=== PATIENT | male | born 1960 | race Caucasian/White ===

== ENCOUNTER 2017-10-19 09:01 | Inpatient (IN) ==
[2017-10-19] MEDS ORDERED: 0.9 % Sodium Chloride 1,000 ML IVC ONE ×2 (09:14→10:05)
[2017-10-19] MEDS ORDERED: *HR* Morphine 2 MG/ML SYRINGE IVP ONE (09:14)
[2017-10-19] MEDS ORDERED: *HR* Promethazine 25 MG/ML VIAL IVP ONE (09:15)
--- NOTE | 2017-10-19 09:31 | Emergency Department Note ---
Disposition Clinical Impression: Acute kidney injury, Dehydration, Gastroenteritis Disposition: Admitted As Inpatient Condition: Good [facility] Care Provider[facility] - Forms: ED Satisfaction Letter Time of Disposition: 10:24 Nausea/Vomiting/Diarrhea HPI - General Chief complaint: ED Nausea/Vomiting/Diarrhea Stated complaint: V/D, dizzy Time Seen by Provider: 10/19/17 09:13 Source: patient, family Limitations: no limitations Nursing Notes Reviewed: Yes Vital Signs Reviewed: Yes - History of Present Illness HPI Narrative: 57-year-old male presents emergency room for nausea vomiting diarrhea. Symptoms started 2 days ago. Started out with vomiting and diarrhea and abdominal cramping. States he does not really have abdominal pain but only when he throws up. He stirring up more than 10 times per day. He is a known diabetic. He states he feels dizzy and just worn out. Denies chest pain. Denies shortness of breath. Denies blood in his vomit or stool. Has had cold sweats but is unsure Pees had any true fever or not. He denies headache. Denies numbness. Symptoms are all isolated to the GI system he states. He went to his orthopedic doctor this morning to get his right knee reexamined as he had a recent right knee surgery. They felt everything with the knee was okay. - Related Data Home Medications Medication Instructions Recorded Confirmed Albuterol Sulfate [Proair Hfa] 1 puff IH Q4H PRN 08/22/16 10/05/17 Aspirin [Lo-Dose Aspirin EC] 81 mg PO DAILY 08/22/16 10/05/17 Esomeprazole Magnesium [Nexium] 20 mg PO DAILY 08/22/16 10/05/17 GlipiZIDE [Glipizide ER] 10 mg PO DAILY 08/22/16 10/05/17 Insulin NPH Hum/Reg Insulin Hm 50 unit SQ QAM 08/22/16 10/05/17 [Humulin 70/30 Kwikpen] Loratadine [Allergy Relief] 10 mg PO DAILY 08/22/16 10/05/17 Metformin HCl [Fortamet] 1,000 mg PO BID 08/22/16 10/05/17 hydroCHLOROthiazide 25 mg PO DAILY 08/22/16 10/05/17 [Hydrochlorothiazide] Insulin Glargine,Hum.rec.anlog 20 unit SQ HS 10/05/17 10/05/17 [Lantus Solostar] Previous Rx's Medication Instructions Recorded Aspirin Enteric Coated [Aspirin EC] 325 mg PO BID #20 tablet. 10/05/17 OxyCODONE Immed Rel [Roxicodone 5 5 mg PO Q4HR PRN #24 tablet 10/05/17 MG] Allergies Allergy/AdvReac Type Severity Reaction Status Date / Time Penicillins Allergy Rash Verified 10/19/17 09:02 Constitutional: Reports: chills, weakness Eyes: Reports: as per HPI Cardiovascular: Reports: as per HPI. Denies: chest pain, palpitations Respiratory: Reports: cough. Denies: dyspnea, wheezes, hemoptysis, stridor Gastrointestinal: Reports: nausea, vomiting, diarrhea Genitourinary: Reports: as per HPI Musculoskeletal: Reports: as per HPI Integumentary: Reports: as per HPI Neurological: Reports: as per HPI, weakness. Denies: headache, numbness, paresthesias, confusion, abnormal gait, vertigo Psychiatric: Reports: as per HPI Endocrine: Reports: as per HPI Hematological/Lymphatic: Reports: as per HPI Allergic/Immunologic: Reports: as per HPI Past Medical History - Past Medical History Medical history: Reports: arthritis, diabetes, hyperlipidemia, hypertension Surgical history: Reports: knee replacement, other Psychiatric history: Reports: no psych history - Social History Smoking Status: Never smoker Smokeless Tobacco Status: No Alcohol use: Reports: occasionally Drug use: Reports: none Physical Exam - General Limitations: no limitations General appearance: alert, other (vomiting) - Head Head exam: atraumatic, normocephalic - Eye Eye exam: Present: normal appearance - Chest Chest inspection: Present: normal inspection - Respiratory Respiratory exam: Present: normal lung sounds bilaterally - Cardiovascular Cardiovascular exam: Present: regular rate, normal rhythm - Abdominal Exam Abdominal exam: Present: soft, tenderness (Generalized abdominal tenderness on palpation. No peritoneal sounds. No guarding.), normal bowel sounds - Extremities Exam Extremities exam: Present: normal inspection, other (Right knee bandaged) - Back Exam Back exam: Present: normal inspection - Neurological Exam Neurological exam: Present: alert, oriented X3 - Psychiatric Psychiatric exam: Present: normal affect, normal mood, depressed Course Vital Signs Temperature 98.0 F 10/19/17 09:02 Pulse Rate 104 10/19/17 09:02 Respiratory Rate 20 10/19/17 09:02 Blood Pressure 96/66 10/19/17 09:02 O2 Sat by Pulse Oximetry 100 10/19/17 09:02 Temperature 98.0 F 10/19/17 09:02 Pulse Rate 89 10/19/17 09:41 Respiratory Rate 20 10/19/17 09:41 Blood Pressure 139/84 10/19/17 09:41 O2 Sat by Pulse Oximetry 99 10/19/17 09:41 Oxygen Delivery Oxygen Delivery Room Air Nausea/Vomiting/Diarrhea - [facility] Narrative Medical decision making narrative: Patient has an elevated BUN/creatinine consistent with dehydration. Patient has acute kidney injury from this. Patient has an elevated lactate. Patient is receiving IV fluids. I feel has elevated lactate secondary to dehydration. I have added a CT abdomen and pelvis to evaluate for any intra-abdominal pathology with the elevated lactate. He has no abdominal pain when he is not vomiting. He is receiving 2 L of fluid thus far in the ER as well as antiemetics. His vomiting has stopped. Her sugars only 372. I spoke with the hospitalist. We will except the patient to their service. cxr neg ekg ok vss at this time afebrile no wbc count elevation - Medical Records Medical records reviewed: Yes I reviewed the patient's medical records. - Lab Data Lab results reviewed: Yes I reviewed the patient's lab results. Result diagrams: 10/19/17 09:28 10/19/17 09:28 Lab Results 10/19/17 10/19/17 10/19/17 Range/Units 09:28 09:28 09:28 WBC 11.1 (4.3-11.1) K/mcL RBC 4.98 (4.19-5.50) M/mcL Hgb 14.3 (12.9-16.9) g/dL Hct 43.0 (37.5-50.1) % MCV 86.3 (83.0-100.0) fL MCH 28.7 (28.0-33.3) pg MCHC 33.3 (31.6-35.5) g/dL RDW 13.2 (11.5-14.5) % Plt Count 502 H (140-400) K/mcL MPV 11.2 (9.4-12.4) fL Immature Gran % 1.4 (0-4) % Seg Neutrophils % 82.7 % Lymphocytes % 7.7 % Monocytes % 7.2 % Eosinophils % 0.5 % Basophils % 0.5 % Neutrophils # 9.2 H (1.6-8.9) K/mcL Lymphocytes # 0.9 (0.6-4.6) K/mcL Monocytes # 0.8 (0.0-1.3) K/mcL Eosinophils # 0.1 (0.0-0.6) K/mcL Basophils # 0.1 (0.0-0.2) K/mcL Sodium 130 L (136-145) mEq/L Potassium 3.8 (3.5-5.1) mEq/L Chloride 88 L (98-107) mEq/L Carbon Dioxide 25 (23-29) mEq/L BUN 24 H (6-20) mg/dL Creatinine 1.69 H (0.70-1.30) mg/dL Est GFR ( Amer) 51 L (> 60) Est GFR (Non-Af Amer) 42 L (> 60) BUN/Creatinine Ratio 14 (6-26) Glucose 372 H (70-105) mg/dL Calculated Osmolality 289 (280-300) Lactic Acid 3.5 H (0.5-2.2) mmol/L Calcium 10.2 (8.6-10.3) mg/dL Magnesium 1.6 (1.6-2.6) mg/dL Total Bilirubin 1.3 H (0.3-1.0) mg/dL Direct Bilirubin 0.3 H (0.0-0.2) mg/dL Indirect Bilirubin 1.0 (0.0-1.2) mg/dL AST 57 H (13-39) Units/L ALT 52 (7-52) Units/L Alkaline Phosphatase 89 (34-104) Units/L Troponin I (< 0.04) ng/mL Serum Total Protein 8.3 (6.4-8.9) g/dL Albumin 4.6 (3.5-5.7) g/dL Globulin 3.7 H (2.4-3.5) g/dL Albumin/Globulin Ratio 1.2 (1.1-2.2) Lipase 44 (11-82) Units/L Beta-Hydroxybutyric Acd 1.20 H (0.02-0.27) mmol/L Range/Units 09:28 WBC (4.3-11.1) K/mcL RBC (4.19-5.50) M/mcL Hgb (12.9-16.9) g/dL Hct (37.5-50.1) % MCV (83.0-100.0) fL MCH (28.0-33.3) pg MCHC (31.6-35.5) g/dL RDW (11.5-14.5) % Plt Count (140-400) K/mcL MPV (9.4-12.4) fL Immature Gran % (0-4) % Seg Neutrophils % % Lymphocytes % % Monocytes % % Eosinophils % % Basophils % % Neutrophils # (1.6-8.9) K/mcL Lymphocytes # (0.6-4.6) K/mcL Monocytes # (0.0-1.3) K/mcL Eosinophils # (0.0-0.6) K/mcL Basophils # (0.0-0.2) K/mcL Sodium (136-145) mEq/L Potassium (3.5-5.1) mEq/L Chloride (98-107) mEq/L Carbon Dioxide (23-29) mEq/L BUN (6-20) mg/dL Creatinine (0.70-1.30) mg/dL Est GFR ( Amer) (> 60) Est GFR (Non-Af Amer) (> 60) BUN/Creatinine Ratio (6-26) Glucose (70-105) mg/dL Calculated Osmolality (280-300) Lactic Acid (0.5-2.2) mmol/L Calcium (8.6-10.3) mg/dL Magnesium (1.6-2.6) mg/dL Total Bilirubin (0.3-1.0) mg/dL Direct Bilirubin (0.0-0.2) mg/dL Indirect Bilirubin (0.0-1.2) mg/dL AST (13-39) Units/L ALT (7-52) Units/L Alkaline Phosphatase (34-104) Units/L Troponin I < 0.03 (< 0.04) ng/mL Serum Total Protein (6.4-8.9) g/dL Albumin (3.5-5.7) g/dL Globulin (2.4-3.5) g/dL Albumin/Globulin Ratio (1.1-2.2) Lipase (11-82) Units/L Beta-Hydroxybutyric Acd (0.02-0.27) mmol/L - Radiology Data Radiology results reviewed: Yes I reviewed the patient's radiology results. - EKG Data EKG attestation: Yes I reviewed and interpreted this EKG. EKG results narrative: EKG shows a rate of 103. Sinus tachycardia. Normal axis. UT interval 146. QRS 86. QTc 384. No signs of acute abnormalities.
[2017-10-19 09:40] LABS: Basophils # 0.1 K/mcL (0.0-0.2); Basophils % 0.5 %; Eosinophils # 0.1 K/mcL (0.0-0.6); Eosinophils % 0.5 %; Hemoglobin 14.3 g/dL (12.9-16.9); Immature Granulocytes % 1.4 % (0-4); Lymphocytes # 0.9 K/mcL (0.6-4.6); Lymphocytes % 7.7 %; Mean Corpuscular HGB Conc 33.3 g/dL (31.6-35.5); Mean Corpuscular Hemoglobin 28.7 pg (28.0-33.3); Mean Corpuscular Volume 86.3 fL (83.0-100.0); Mean Platelet Volume 11.2 fL (9.4-12.4); Monocytes # 0.8 K/mcL (0.0-1.3); Monocytes % 7.2 %; Neutrophils # 9.2 K/mcL (1.6-8.9); Platelet Count 502 K/mcL (140-400); Red Blood Count 4.98 M/mcL (4.19-5.50); Red Cell Distribution Width 13.2 % (11.5-14.5); Segmented Neutrophils % 82.7 %
[2017-10-19 09:52] LABS: Beta-Hydroxybutyric Acid 1.2 mmol/L (0.02-0.27)
[2017-10-19 10:01] LABS: Albumin 4.6 g/dL (3.5-5.7); Albumin/Globulin Ratio 1.2 (1.1-2.2); Bilirubin,Direct 0.3 mg/dL (0.0-0.2); Bilirubin,Total 1.3 mg/dL (0.3-1.0); Calcium 10.2 mg/dL (8.6-10.3); Globulin 3.7 g/dL (2.4-3.5); Magnesium 1.6 mg/dL (1.6-2.6); Potassium 3.8 mEq/L (3.5-5.1); Total Protein 8.3 g/dL (6.4-8.9)
[2017-10-19] MEDS ORDERED: Naloxone 0.4 MG/ML INJ IVP PRN (14:20)
[2017-10-19] MEDS ORDERED: Ondansetron 4 MG/2 ML VIAL IVP PRN (14:20)
[2017-10-19] MEDS ORDERED: *HR* Dextrose 50 % in Water (Syg) 50 ML SYRINGE IVP PRN (14:36)
[2017-10-19] MEDS ORDERED: D5% in Water 1,000 ML IVC PRN (14:36)
[2017-10-19] MEDS ORDERED: Dextrose Gel 15 GM PO PRN ×2 (14:36)
--- NOTE | 2017-10-19 14:54 | Internal Med History&Physical ---
<Yolanda Claros - Last Filed: 10/19/17 16:39> Date of Encounter: 10/19/17 Time of Encounter: 14:00 Assessment and Plan (1) Acute kidney injury Status: Acute Patient's creatinine is 1.69 baseline is less than 1 GFR is 42. Suspect this is prerenal due to fluid loss from nausea vomiting. We will give gentle IV hydration and monitor creatinine.-We will hold diuretics for now We will avoid nephrotoxins No NSAIDS Monitor intake and output and daily weights Monitor electrolytes Renal dose all antibiotics (2) Gastroenteritis Status: Acute Patient has been experiencing nausea vomiting and diarrhea for the past 2 days he has had sick contacts his has been ill with upper respiratory symptoms and has been exposed to small children with similar symptoms. Continue with IV fluids Antiemetics Clear liquid diet and advance as tolerated (3) Dehydration Status: Acute 1 patient has been experiencing nausea vomiting diarrhea for the past 2 days we will continue with IV fluids Monitor electrolytes and replace as needed Clear liquid diet and advance as tolerated Anti-emetics Will obtain flu swab (4) Hypertension Status: Chronic Presently stable we will continue with IV fluids and hold hydrochlorothiazide for now due to JOSSELINE Qualifiers: Hypertension type: essential hypertension Qualified Code(s): I10 - Essential (primary) hypertension (5) Type 2 diabetes mellitus Status: Chronic Patient has been vomiting and unable to keep food down. We will place on a clear liquid diet and advance as tolerated Accu-Cheks before meals at bedtime with a sliding scale insulin. We will advance insulin as patient able to tolerate oral intake Qualifiers: Diabetes mellitus complication status: with unspecified complications Diabetes mellitus senior care insulin use: unspecified exterminator helper insulin use status Qualified Code(s): E11.8 - Type 2 diabetes mellitus with unspecified complications (6) Status post total knee replacement, right Status: Acute Patient underwent a total R knee replacement October 05 he did follow-up with orthopedics and had vera removed today . He does have some warmth to the R knee no redness or drainage- since he is experiencing some generalized fatigue and malaise as well as N/V/D - concerned for possible infectious process- will obtain procalcitonin and blood culture He is diabetic and swab MRSA positive We will empirically cover Vancomycin meropenem and Cipro- and monitor for next 48 hours and scale back or DC antibiotics as deemed necessary We will consult orthopedics-Dr. North did speak with spare person for Dr. Reardon (7) DVT prophylaxis Status: Acute Heparin subcutaneous Internal Medicine - H&P: HPI Chief complaint: N/V/D Admitted From: Emergency Dept Plans for Post Hospital Care: Home History of present illness: Mr. Cole is a 57 year old male past medical history of diabetes hyperlipidemia hypertension GERD arthritis. Patient has been experiencing vomiting diarrhea and abdominal cramping over the past 2 days. Denies any real abdominal pain just complains of cramping when he is vomiting. He has been unable to keep down food however he has been sipping on water and 7-Up for the past 2 days. He denies any chest pain shortness of breath. He denies any hematemesis hematochezia or melena. He does have fatigue and malaise with a cough and sputum production which he describes as yellow . He is a diabetic and states his blood sugars have been elevated over the past few days he has had a decrease in urine output. He does admit that he has been exposed to illness his has been ill for the past week with upper respiratory symptoms as well as he has been exposed to small children who have been ill. He did not receive a flu shot this year Today he went to his scheduled appointment with his orthopedic surgeon he had total right knee replacement approximately 2 weeks ago. He is experiencing some pain on ambulation and states that his knee does not seem to feel the same as previous knee replacement. Lab work in the ER did reveal a KI with creatinine of 1.69 elevated lactate elevated blood sugar white count was slightly elevated chest x-ray with no acute process. CT of abdomen was obtained which was negative for any intra-abdominal abnormalities. Patient was given IV fluids as well as antiemetic and has been admitted for further workup and evaluation. 5 Past Med Surg Social Fam HX - Past Medical History Medical history: arthritis, diabetes, hyperlipidemia, hypertension Psychiatric history: no psych history - Past Surgical History Surgical History: knee replacement, other - Social History Smoking Status: Never smoker Smokeless Tobacco Status: No Alcohol use: occasionally Drug use: none Internal Medicine - H&P: Meds Albuterol Sulfate [Proair Hfa] 1 puff IH Q4H PRN 08/22/16 [History] Aspirin [Lo-Dose Aspirin EC] 81 mg PO DAILY 08/22/16 [History] Esomeprazole Magnesium [Nexium] 20 mg PO DAILY 08/22/16 [History] Insulin NPH Hum/Reg Insulin Hm [Humulin 70/30 Kwikpen] 6 unit SQ TID 08/22/16 [ History] Metformin HCl [Fortamet] 1,000 mg PO BID 08/22/16 [History] hydroCHLOROthiazide [Hydrochlorothiazide] 25 mg PO DAILY 08/22/16 [History] Insulin Glargine,Hum.rec.anlog [Lantus Solostar] 20 unit SQ HS 10/05/17 [History ] Allopurinol [Zyloprim] 300 mg PO DAILY 10/19/17 [History] Gabapentin [Neurontin] 800 mg PO TID 10/19/17 [History] Meloxicam [Mobic] 7.5 mg PO BID 10/19/17 [History] Prazosin [Minipress] 1 mg PO HS 10/19/17 [History] Saxagliptin HCl [Onglyza] 5 mg PO DAILY 10/19/17 [History] Oseltamivir [Tamiflu] 75 mg PO BID #6 capsule 10/21/17 [Rx] 3 Allergy/AdvReac Type Severity Reaction Status Date / Time Penicillins Allergy Rash Verified 10/19/17 09:02 All Systems PM: A 10-system review of systems was performed and is negative for pertinent findings except as documented above in the HPI. - Constitutional Constitutional: chills, fatigue, weakness, no fever(s), no night sweats - EENT Eyes: no change in vision, no discharge, no pain, no photophobia Nose, mouth and throat: no dysphagia, no nasal discharge, no neck pain, no sore throat - Cardiovascular Cardiovascular ROS IM: no chest pain, no diaphoresis, no dyspnea, no lightheadedness, no palpitations, no syncope - Respiratory Respiratory: no cough, no dyspnea, no wheezing, no excessive phlegm production - Gastrointestinal Gastrointestinal: cramping, nausea, vomiting - Musculoskeletal Musculoskeletal ROS IM: no numbness, no tingling - Integumentary Integumentary IM: no rash, no unusual bruising - Neurological Neurological ROS: no confusion, no convulsions, no focal weakness, no numbness, no tingling, no tremor(s) - Hematologic/Lymphatic Hematologic/Lymphatic: no easy bruising - Constitutional Vitals: Temp Pulse Resp BP Pulse Ox 98.6 F 89 14 124/76 98 10/19/17 13:06 10/19/17 13:06 10/19/17 13:06 10/19/17 13:06 10/19/17 13:06 General appearance: Present: A&O X 3, answers questions appropriately - Head Head exam: Present: atraumatic, normocephalic - Eye Eye exam: Present: PERRL, conjuntiva pink, sclera anicteric Pupils: Present: PERRL - Neck Neck exam general surgery: Present: supple, trachea midline. Absent: lymphadenopathy - Respiratory Respiratory exam: Present: CTAB. Absent: accessory muscle use, rales, rhonchi, wheezes - Cardiovascular Cardiovascular exam: Present: RRR, +S1, +S2. Absent: diastolic murmur, gallop, rubs, systolic murmur - GI/Abdominal GI/Abdominal exam: Present: normal bowel sounds, soft, no peritoneal signs. Absent: distended, tenderness - Extremities Exam Extremities exam: Present: warm, radial pulses palpable and symmetrical. Absent : calf tenderness, cyanotic, pedal edema - Incison Incision: Present: intact Comments: Incision to right knee with dressing intact no redness or drainage knee is swollen and warm to touch - Neurological Exam Neurological exam: Present: CN II-XII intact, oriented X3, no focal deficits. Absent: pronater drift, facial droop, speech deficit - Skin Skin exam: Present: dry, intact Internal Med - H&P Results - Labs CBC & Chem 7: 10/19/17 09:28 10/19/17 09:28 - EKG Data EKG shows normal: sinus rhythm - Diagnostic Studies Other Images Additional comments: Chest X-Ray 10/19/17 09:14 IMPRESSION: No acute process. We D/ / Eren Davis MD / Eren Davis MD Interpreting Provider: Eren Davis MD Abdomen/Pelvis CT 10/19/17 10:04 IMPRESSION: No acute abnormalities in the abdomen or pelvis. No evidence of acute bowel abnormality to suggest bowel obstruction, perforation or thickening. Incidental fatty infiltration of the liver. Normal appendix. D/ / 10/19/2017 10:47:04 Yaa Beaver MD / bucky Interpreting Provider: Yaa Beaver MD - VTE Documentation of Mechanical Device: Intermittent pneumatic compression device <Grady North P - Last Filed: 10/23/17 17:25> Date of Encounter: 10/23/17 Internal Medicine - H&P: HPI History of present illness: Mr. Cole is a 57 year old male All Systems PM: A 10-system review of systems was performed and is negative for pertinent findings except as documented above in the HPI. - Constitutional Vitals: Temp Pulse Resp BP Pulse Ox 99.3 F 78 16 122/73 95 10/21/17 07:36 10/21/17 07:36 10/21/17 07:36 10/21/17 07:36 10/21/17 09:00 Internal Med - H&P Results - Labs CBC & Chem 7: 10/21/17 05:09 10/21/17 05:09 - Attending Attestation I examined this patient and my medical decision-making was reviewed with the Resident Physician/QA ENGINEER. I agree with the documented findings, disposition and treatment plan as described except to the extent set forth below. agree with QA ENGINEER evaluation
[2017-10-19] MEDS: 0.9 % Sodium Chloride 1,000 ML IVC SCH (15:57)
[2017-10-19] MEDS: Gabapentin 400 MG CAPSULE PO SCH ×2 (15:57→20:38)
[2017-10-19] MEDS: Insulin LISPRO 300 UNITS/3 ML VIAL SQ SCH ×2 (17:30→20:40)
[2017-10-19] MEDS: Vancomycin 1,500 MG in D5% in Water 250 ML IVPB SCH (17:30)
[2017-10-19] MEDS: *HR* Heparin 5,000 UNIT/ML VIAL SQ SCH (17:36)
--- NOTE | 2017-10-19 17:36 | Orthopedic Consult Note ---
Date of Encounter: 10/19/17 Time of Encounter: 17:15 Assessment and Plan (1) Status post total knee replacement, right Current Visit: No Status: Acute Patient much improved from evaluation earlier this morning by this provider. Patient status communicated to Dr. Reardon. Continue with medical management for other health conditions at this time. PT/OT as tolerated for right knee. Ambulate using walker. Leave honeycomb dressing in place. If saturated notify [facility] and remove dressing, cleanse, and reapply honeycomb dressing. Please reach out with any concerns regarding management of right knee. Thank you for this consultation. (2) Acute kidney injury Current Visit: Yes Status: Acute (3) Dehydration Current Visit: Yes Status: Acute (4) Gastroenteritis Current Visit: Yes Status: Acute History of Present Illness Chief complaint: nausea/vomiting/diarrhea HPI: Mr. Cole is a 57 year old male who is 14 days postop from Right robotic- assisted Total knee replacement performed 10/05/[address] Reardon. He presented to see this provider this morning for incision check and Zipline removal and had a near syncopal episode as well as frequent vomiting while in the outpatient office at [facility] at [facility]. He admitted to a 2 days history of sudden onset nausea, vomiting, and diarrhea. This provider sent him to ED for evaluation and treatment with concern for possible DKA given his diabetic status versus dehydration necessitating IV fluid resuscitation. Patient seen at bedside with spouse present. She admits she has had an upper respiratory virus for the past week or so and they state they assumed that was what Mr. Cole caught though he became very ill very quickly. He has IV fluids running and nurse is at bedside. He is alert and oriented and able to carry on coherent conversation. Right knee demonstrates intact honeycomb dressing that was placed this morning. Tenderness and swelling as expected for POD#14 of TKR. No calf tenderness. Neurovascularly intact. Patient much improved from evaluation earlier this morning by this provider. Patient status communicated to Dr. Reardon. Continue with medical management for other health conditions at this time. PT/OT as tolerated for right knee. Ambulate using walker. Leave honeycomb dressing in place. If saturated notify [facility] and remove dressing, cleanse, and reapply honeycomb dressing. Please reach out with any concerns regarding management of right knee. Thank you for this consultation. Past Med Surg Social Fam HX - Past Medical History Medical history: arthritis, diabetes, hyperlipidemia, hypertension Psychiatric history: no psych history - Past Surgical History Surgical History: knee replacement, other - Social History Smoking Status: Never smoker Smokeless Tobacco Status: No Alcohol use: occasionally Drug use: none Medications and Allergies Albuterol Sulfate [Proair Hfa] 1 puff IH Q4H PRN 08/22/16 [History] Aspirin [Lo-Dose Aspirin EC] 81 mg PO DAILY 08/22/16 [History] Esomeprazole Magnesium [Nexium] 20 mg PO DAILY 08/22/16 [History] Insulin NPH Hum/Reg Insulin Hm [Humulin 70/30 Kwikpen] 6 unit SQ TID 08/22/16 [ History] Metformin HCl [Fortamet] 1,000 mg PO BID 08/22/16 [History] hydroCHLOROthiazide [Hydrochlorothiazide] 25 mg PO DAILY 08/22/16 [History] Insulin Glargine,Hum.rec.anlog [Lantus Solostar] 20 unit SQ HS 10/05/17 [History ] Allopurinol [Zyloprim] 300 mg PO DAILY 10/19/17 [History] Gabapentin [Neurontin] 800 mg PO TID 10/19/17 [History] Meloxicam [Mobic] 7.5 mg PO BID 10/19/17 [History] Prazosin [Minipress] 1 mg PO HS 10/19/17 [History] Saxagliptin HCl [Onglyza] 5 mg PO DAILY 10/19/17 [History] 3 Allergy/AdvReac Type Severity Reaction Status Date / Time Penicillins Allergy Rash Verified 10/19/17 09:02 All Systems Reviewed: A 10-system review of systems was performed and is negative for pertinent findings except as documented above in the HPI. Physical Exam - Constitutional Vitals: Temp Pulse Resp BP Pulse Ox 99.2 F 94 16 115/72 97 10/19/17 15:05 10/19/17 15:05 10/19/17 15:05 10/19/17 15:05 10/19/17 15:05 Results - Labs Result Diagrams: 10/19/17 09:28 10/19/17 09:28 Labs: Abnormal lab results Plt Count 502 K/mcL (140-400) H 10/19/17 09:28 Neutrophils # 9.2 K/mcL (1.6-8.9) H 10/19/17 09:28 Sodium 130 mEq/L (136-145) L 10/19/17 09:28 Chloride 88 mEq/L (98-107) L 10/19/17 09:28 BUN 24 mg/dL (6-20) H 10/19/17 09:28 Creatinine 1.69 mg/dL (0.70-1.30) H 10/19/17 09:28 Est GFR ( Amer) 51 (> 60) L 10/19/17 09:28 Est GFR (Non-Af Amer) 42 (> 60) L 10/19/17 09:28 Glucose 372 mg/dL (70-105) H 10/19/17 09:28 Lactic Acid 3.5 mmol/L (0.5-2.2) H 10/19/17 09:28 Total Bilirubin 1.3 mg/dL (0.3-1.0) H 10/19/17 09:28 Direct Bilirubin 0.3 mg/dL (0.0-0.2) H 10/19/17 09:28 AST 57 Units/L (13-39) H 10/19/17 09:28 Globulin 3.7 g/dL (2.4-3.5) H 10/19/17 09:28 Beta-Hydroxybutyric Acd 1.20 mmol/L (0.02-0.27) H 10/19/17 09:28 All other labs normal. Consult Discharge Plan - Plan [facility]: [facility]Primary Care Provider[facility] -
[2017-10-19] MEDS ORDERED: Levofloxacin 750 MG/150 ML 750 MG/150 ML BAG IVPB SCH (18:00)
--- NOTE | 2017-10-19 18:26 | Electrocardiograph Report ---
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
[2017-10-19] MEDS: Meropenem 1,000 MG in Water for inj. (sterile) 10 ML IVP SCH (18:37)
[2017-10-19] MEDS: Lactobacillus 1 EACH CAP.SPRINK PO SCH (20:38)
[2017-10-19] MEDS: Acetaminophen 325 MG TABLET PO PRN (22:03)
[2017-10-20] MEDS ORDERED: Meropenem 1,000 MG in Water for inj. (sterile) 10 ML IVP SCH
[2017-10-20] MEDS: Meropenem 1,000 MG in Water for inj. (sterile) 10 ML IVP SCH (02:35)
[2017-10-20] MEDS: 0.9 % Sodium Chloride 1,000 ML IVC SCH ×3 (02:39→22:45)
[2017-10-20] MEDS: *HR* Heparin 5,000 UNIT/ML VIAL SQ SCH ×2 (05:42→17:13)
[2017-10-20] MEDS: Vancomycin 1,500 MG in D5% in Water 250 ML IVPB SCH (05:43)
[2017-10-20 05:54] LABS: BUN/Creatinine Ratio 16 (6-26); Blood Urea Nitrogen 17 mg/dL (6-20); Carbon Dioxide 30 mEq/L (23-29); Chloride 97 mEq/L (98-107); Glucose 235 mg/dL (70-105); Osmolality,Calculated 287 (280-300); Potassium 3.8 mEq/L (3.5-5.1); Sodium 134 mEq/L (136-145); eGFR For African Americans > 60 (> 60); eGFR For Non-African Americans > 60 (> 60)
[2017-10-20] MEDS: Lactobacillus 1 EACH CAP.SPRINK PO SCH ×2 (07:58→20:19)
[2017-10-20] MEDS: Aspirin Enteric Coated 81 MG Tablet PO SCH (07:59)
[2017-10-20] MEDS: Gabapentin 400 MG CAPSULE PO SCH (07:59)
[2017-10-20] MEDS: Insulin LISPRO 300 UNITS/3 ML VIAL SQ SCH ×4 (08:00→20:18)
--- NOTE | 2017-10-20 08:09 | Orthopedics Progress Note ---
Date of Encounter: 10/20/17 Time of Encounter: 08:08 Subjective Interval history: Patient seen this morning had a episode where his knee gave out this morning. He will be fitted with a brace. On exam he has no swelling no concern for infection dressing is clean dry and intact. Patient will continue with hospitalist care reconsult if necessary. All orthopedic outpatient Objective Vital signs: Vital Signs Temp Pulse Resp BP Pulse Ox 10/20/17 07:03 99.1 F 87 18 118/75 93 10/20/17 05:30 97.9 F 66 16 122/69 95 10/20/17 00:13 98.5 F 77 15 104/66 94 10/19/17 19:20 99.6 F 85 18 112/70 97 Intake and Output 10/19/17 10/20/17 10/20/17 23:59 07:59 15:59 Intake Total 580 / 580 1260 / 1260 250 / 250 Output Total 800 / 800 1300 / 1300 Balance -220 / -220 -40 / -40 250 / 250 Intake: IV Fluids 160 / 160 1260 / 1260 250 / 250 0.9 % Sodium Chloride 1,000 ML 1000 / 1000 @ 100 mls/hr IVC .Q10H [facility] Rx#: [id number] Merrem 1,000 MG In Water for inj. (sterile) 10 ML @ 200 mls/ hr IVP Q8H [facility] Rx#:[id number] Levaquin Premix 750mg/150 mL 150 / 150 750 mg In 150 ml @ 100 mls/hr IVPB Q24H [facility] Rx#:[id number] Vancocin 1,500 MG In Dextrose 5 250 / 250 250 / 250 % 250 ML @ 167 mls/hr IVPB Q12H [facility] Rx#:[id number] Oral 420 / 420 0 / 0 Output: Urine 800 / 800 1300 / 1300 Other: Weight 102.6 kg Blood Glucose* 299 231 Patient Weight 10/20/17 23:59 Weight 102.6 kg - Labs CBC & BMP: 10/19/17 09:28 10/20/17 04:56 Labs: Abnormal lab results Plt Count 502 K/mcL (140-400) H 10/19/17 09:28 Neutrophils # 9.2 K/mcL (1.6-8.9) H 10/19/17 09:28 Sodium 134 mEq/L (136-145) L 10/20/17 04:56 Chloride 97 mEq/L (98-107) L 10/20/17 04:56 Carbon Dioxide 30 mEq/L (23-29) H 10/20/17 04:56 Glucose 235 mg/dL (70-105) H 10/20/17 04:56 POC Glucose 299 (58-89) H 10/19/17 20:24 Lactic Acid 3.5 mmol/L (0.5-2.2) H 10/19/17 09:28 Total Bilirubin 1.3 mg/dL (0.3-1.0) H 10/19/17 09:28 Direct Bilirubin 0.3 mg/dL (0.0-0.2) H 10/19/17 09:28 AST 57 Units/L (13-39) H 10/19/17 09:28 Globulin 3.7 g/dL (2.4-3.5) H 10/19/17 09:28 Beta-Hydroxybutyric Acd 1.20 mmol/L (0.02-0.27) H 10/19/17 09:28 - VTE Documentation of Mechanical Device: Intermittent pneumatic compression device Consult Discharge Plan - Plan [facility]: [facility] [Primary Care Provider[facility] -
--- NOTE | 2017-10-20 09:15 | Internal Med Progress Note ---
Date of Encounter: 10/20/17 Time of Encounter: 09:15 - Assessment and plan (1) Influenza B Current Visit: Yes Status: Acute Assessment and plan: The patient has been started on Tamiflu. We will do 5 days of this. Isolation precautions. He is not requiring any oxygen. I anticipate he may be able to discharge tomorrow. (2) Gastroenteritis Current Visit: Yes Status: Acute Assessment and plan: I think his symptoms are more consistent with a viral gastroenteritis. His symptoms are improving. We will continue with IV fluids. I do not see a need for antibiotics. I have stopped the vancomycin and meropenem and Levaquin. CT of the pelvis noted. (3) Lactic acidosis Current Visit: Yes Status: Acute Assessment and plan: We will repeat lactic acid level this morning. Continue with IV fluids. His lactic acid level was 3.5 yesterday (4) Hypertension Current Visit: No Status: Chronic Assessment and plan: His blood pressure stable despite holding hydrochlorothiazide. We will continue to hold hydrochlorothiazide given acute kidney injury.. Qualifiers: Hypertension type: essential hypertension Qualified Code(s): I10 - Essential (primary) hypertension (5) Type 2 diabetes mellitus Current Visit: No Status: Chronic Assessment and plan: Continue with insulin sliding scale for now. Continue with Accu-Cheks. He is on a diabetic diet. I have advanced him on clears. Qualifiers: Diabetes mellitus complication status: with unspecified complications Diabetes mellitus chcf insulin use: unspecified intermodal dispatcher insulin use status Qualified Code(s): E11.8 - Type 2 diabetes mellitus with unspecified complications (6) Status post total knee replacement, right Current Visit: No Status: Acute Assessment and plan: Does not seem to be an issue. Orthopedics will follow as an outpatient. (7) Acute kidney injury Current Visit: Yes Status: Acute Assessment and plan: Continue with IV fluids. Avoid nephrotoxins. Check labs in the morning. Kidney numbers are improving. Encourage po intake. (8) DVT prophylaxis Current Visit: Yes Status: Acute Assessment and plan: Heparin subcutaneous. - Subjective Interval history: No acute events. The patient was admitted yesterday with flulike symptoms and vomiting. He says his vomiting is much more improved this morning. He was able tolerate clear liquid diet this morning. He has been afebrile. He feels some chest congestions and is having a dry cough. Tested positive for influenza B. - Constitutional Vitals: Temp Pulse Resp BP Pulse Ox 99.1 F 87 18 118/75 93 10/20/17 07:03 10/20/17 07:03 10/20/17 07:03 10/20/17 07:03 10/20/17 07:03 General appearance: Present: A&O X 3, answers questions appropriately Exam: GEN: NAD CVS: RRR. S1, S2, No m/r/g RESP: Coarse at the bases ABD: Soft, NT, ND, +BS EXT: No edema. 2+ DP. No rashes. Right knee is dressed with no surrounding erythema noted at the site of the right knee arthroplasty. NEURO: Nonfocal Internal Medicine: Result - Labs CBC & Chem 7: 10/19/17 09:28 10/20/17 04:56 Labs: BMP 10/20/17 04:56 Sodium 134 L Potassium 3.8 Chloride 97 L Carbon Dioxide 30 H BUN 17 Creatinine 1.04 Glucose 235 H Calcium 9.0 - VTE Documentation of Mechanical Device: Intermittent pneumatic compression device Consult Discharge Plan - Plan [facility]errals: [facility] [Primary Care Provider] -
[2017-10-20] MEDS ORDERED: Aminoglycoside Consult 1 EACH MC ONE (12:03)
[2017-10-20] MEDS: Insulin DETEMIR 100 UNIT/ML X5UNITS SQ SCH (12:50)
[2017-10-20] MEDS: Acetaminophen 325 MG TABLET PO PRN (14:49)
[2017-10-20] MEDS: *HR* OxyCODONE Immed Rel 5 MG TABLET PO PRN (22:45)
[2017-10-21] MEDS: *HR* OxyCODONE Immed Rel 5 MG TABLET PO PRN (04:10)
[2017-10-21] MEDS: *HR* Heparin 5,000 UNIT/ML VIAL SQ SCH (05:10)
[2017-10-21 06:02] LABS: Basophils % 0.4 %; Eosinophils # 0.1 K/mcL (0.0-0.6); Eosinophils % 1.3 %; Hematocrit 34.3 % (37.5-50.1); Immature Granulocytes % 0.4 % (0-4); Lymphocytes # 1.3 K/mcL (0.6-4.6); Lymphocytes % 26.9 %; Mean Corpuscular HGB Conc 32.1 g/dL (31.6-35.5); Mean Corpuscular Hemoglobin 28.5 pg (28.0-33.3); Mean Corpuscular Volume 88.9 fL (83.0-100.0); Monocytes # 0.6 K/mcL (0.0-1.3); Monocytes % 12.4 %; Platelet Count 356 K/mcL (140-400); Red Blood Count 3.86 M/mcL (4.19-5.50); Red Cell Distribution Width 13.2 % (11.5-14.5); Segmented Neutrophils % 58.6 %
[2017-10-21 06:03] LABS: Neutrophils # 2.8 K/mcL (1.6-8.9)
[2017-10-21 06:22] LABS: Alanine Aminotransferase 41 Units/L (7-52); Albumin 3.1 g/dL (3.5-5.7); Albumin/Globulin Ratio 1.1 (1.1-2.2); Alkaline Phosphatase 59 Units/L (34-104); Aspartate Amino Transferase 46 Units/L (13-39); BUN/Creatinine Ratio 14 (6-26); Bilirubin,Total 0.5 mg/dL (0.3-1.0); Blood Urea Nitrogen 12 mg/dL (6-20); Calcium 8.4 mg/dL (8.6-10.3); Carbon Dioxide 26 mEq/L (23-29); Chloride 100 mEq/L (98-107); Globulin 2.7 g/dL (2.4-3.5); Glucose 216 mg/dL (70-105); Osmolality,Calculated 284 (280-300); Potassium 3.6 mEq/L (3.5-5.1); Sodium 134 mEq/L (136-145); Total Protein 5.8 g/dL (6.4-8.9); eGFR For African Americans > 60 (> 60); eGFR For Non-African Americans > 60 (> 60)
[2017-10-21 07:37] VITALS: BP 122/73
[2017-10-21] MEDS ORDERED: 0.9 % Sodium Chloride 1,000 ML IVC ONE (07:57)
[2017-10-21] MEDS: Aspirin Enteric Coated 81 MG Tablet PO SCH (08:39)
[2017-10-21] MEDS: Lactobacillus 1 EACH CAP.SPRINK PO SCH (08:39)
[2017-10-21] MEDS: Insulin LISPRO 300 UNITS/3 ML VIAL SQ SCH (08:41)
[2017-10-21] MEDS: 0.9 % Sodium Chloride 1,000 ML IVC SCH (08:51)
[2017-10-21] MEDS: Insulin DETEMIR 100 UNIT/ML X5UNITS SQ SCH (08:51)
--- NOTE | 2017-10-21 10:08 | Discharge Summary ---
Date of Encounter: 10/21/17 Time of Encounter: 10:00 - Discharge Diagnosis (1) Influenza B Priority: Primary Status: Acute (2) Gastroenteritis Priority: Primary Status: Acute (3) Lactic acidosis Priority: Primary Status: Acute (4) Hypertension Priority: Secondary Status: Chronic Qualifiers: Hypertension type: essential hypertension Qualified Code(s): I10 - Essential (primary) hypertension (5) Type 2 diabetes mellitus Priority: Secondary Status: Chronic Qualifiers: Diabetes mellitus complication status: with unspecified complications Diabetes mellitus skilled nursing insulin use: unspecified skilled nursing insulin use status Qualified Code(s): E11.8 - Type 2 diabetes mellitus with unspecified complications (6) Status post total knee replacement, right Priority: Secondary Status: Acute (7) Acute kidney injury Priority: Primary Status: Acute - Discharge Medications Prescriptions: Oseltamivir [Tamiflu] 75 mg PO BID #6 capsule Home Medications: Albuterol Sulfate [Proair Hfa] 1 puff IH Q4H PRN 08/22/16 [History] Aspirin [Lo-Dose Aspirin EC] 81 mg PO DAILY 08/22/16 [History] Esomeprazole Magnesium [Nexium] 20 mg PO DAILY 08/22/16 [History] Insulin NPH Hum/Reg Insulin Hm [Humulin 70/30 Kwikpen] 6 unit SQ TID 08/22/16 [ History] Metformin HCl [Fortamet] 1,000 mg PO BID 08/22/16 [History] hydroCHLOROthiazide [Hydrochlorothiazide] 25 mg PO DAILY 08/22/16 [History] Insulin Glargine,Hum.rec.anlog [Lantus Solostar] 20 unit SQ HS 10/05/17 [History ] Allopurinol [Zyloprim] 300 mg PO DAILY 10/19/17 [History] Gabapentin [Neurontin] 800 mg PO TID 10/19/17 [History] Meloxicam [Mobic] 7.5 mg PO BID 10/19/17 [History] Prazosin [Minipress] 1 mg PO HS 10/19/17 [History] Saxagliptin HCl [Onglyza] 5 mg PO DAILY 10/19/17 [History] Oseltamivir [Tamiflu] 75 mg PO BID #6 capsule 10/21/17 [Rx] Allergies/Adverse Reactions: 3 Allergy/AdvReac Type Severity Reaction Status Date / Time Penicillins Allergy Rash Verified 10/19/17 09:02 Procedures/tests Complete & Pending: Procedures Performed prior 72 hours Category Date Time Status Venous Doppler [EV venous imaging LE RT] Stat Y 10/19/17 17:43 Completed Date of admission: 10/19/17 16:20 Primary care physician: PCP ENMANUEL - Patient Status Disposition: Home, Self-Care Condition: Fair Overall status at discharge: patient is back to baseline - Discharge Instructions Instructions: Gastroenteritis (DC) [facility]: [facility] [Primary Care Provider[facility] - - Diet and Activity Activity: resume usual activities as tolerated Diet: diabetic diet, regular diet Hospital course: Mr. Cole is a 57 year old male past medical history of diabetes hyperlipidemia hypertension GERD arthritis. Patient has been experiencing vomiting diarrhea and abdominal cramping over 2 days. Lab work in the ER did reveal a KI with creatinine of 1.69 elevated lactate elevated blood white count was slightly elevated. chest x-ray with no acute process. CT of abdomen was obtained which was negative for any intra-abdominal abnormalities. He tested positive for influenza B. He was admitted to the hospital service for rehydration with a diagnosis of the fluids well likely viral gastroenteritis. He was hydrated and his lactic acidosis as well as acute kidney injury resolved. He was started on Tamiflu. He was initially started on broad- spectrum antibiotics but I discontinued that as I did not see a need. He was discharged on Tamiflu to finish 3 more days. He was advised on the significance of keeping up with hydration at home. He was stable on 10/21/22, 017 - Time Spent with Patient Total time spent providing and/or coordinating discharge services: Greater than 30 minutes - Constitutional Vitals: Temp Pulse Resp BP Pulse Ox 99.3 F 78 16 122/73 95 10/21/17 07:36 10/21/17 07:36 10/21/17 07:36 10/21/17 07:36 10/21/17 07:36 General appearance: Present: A&O X 3, answers questions appropriately Exam: GEN: NAD CVS: RRR. S1, S2, No m/r/g RESP: Coarse at the bases ABD: Soft, NT, ND, +BS EXT: No edema. 2+ DP. No rashes. Right knee is dressed with no surrounding erythema noted at the site of the right knee arthroplasty. NEURO: Nonfocal - VTE Documentation of Mechanical Device: Intermittent pneumatic compression device
== END 2017-10-21 12:04 | disposition home or self-care (01) | DRG 194 ==
LOC: EMEROO 09:01 → 3ANU 09:01
PROVIDERS: ADMIT Internal Medicine; ATTEND Internal Medicine

== ENCOUNTER 2021-07-15 18:32 | Inpatient (IN) ==
[2021-07-15 19:18] LABS: Basophils % 0.3 %; Eosinophils # 0.1 K/mcL (0.0-0.6); Eosinophils % 0.7 %; Hematocrit 45.3 % (37.5-50.1); Hemoglobin 15.3 g/dL (12.9-16.9); Immature Granulocytes % 0.6 % (0-4); Lymphocytes # 2.6 K/mcL (0.6-4.6); Lymphocytes % 20.9 %; Mean Corpuscular HGB Conc 33.8 g/dL (31.6-35.5); Mean Corpuscular Hemoglobin 30.1 pg (28.0-33.3); Mean Platelet Volume 11.8 fL (9.4-12.4); Monocytes # 1.2 K/mcL (0.0-1.3); Monocytes % 9.5 %; Neutrophils # 8.5 K/mcL (1.6-8.9); Platelet Count 215 K/mcL (140-400); Red Blood Count 5.09 M/mcL (4.19-5.50); White Blood Count 12.5 K/mcL (4.3-11.1)
[2021-07-15 19:27] LABS: Amphetamine Screen,Urine Negative ng/mL (Cutoff=1000); Barbiturate Screen,Urine Negative ng/mL (Cutoff=200); Benzodiazepines Screen,Urine Negative ng/mL (Cutoff=200); Cannabinoid Screen,Urine Negative ng/mL (Cutoff = 50); Cocaine Screen,Urine Negative ng/mL (Cutoff= 300); Opiate Screen,Urine Negative ng/mL (Cutoff=300); Phencyclidine Screen,Urine Negative ng/mL (Cutoff=25)
[2021-07-15 19:38] LABS: Bilirubin,Urine Negative (Negative); Blood,Urine Negative (Negative); Clarity,Urine Clear (Clear); Color,Urine Light-Yellow (Yellow); Glucose,Urine (UA) >=1000 mg/dL (Normal); Ketones,Urine Negative (Negative); Leukocyte Esterase,Urine Negative (Negative); Nitrite,Urine Negative (Negative); PH,Urine 6.5 pH Units (5.0-8.0); Protein,Urine Negative (Neg-Trace); RBC,Urine 0-3 per hpf (0-3); Specific Gravity,Urine > 1.030 (1.010-1.025); Squamous Epithelial Cell,Urine Few per hpf (None-Few); Urobilinogen,Urine Normal (Normal); WBC,Urine 0-3 per hpf (0-3)
[2021-07-15 19:57] LABS: Acetaminophen < 10 mcg/mL (10-20); Alanine Aminotransferase 27 Units/L (7-52); Albumin 4.3 g/dL (3.5-5.7); Albumin/Globulin Ratio 1.4 (1.1-2.2); Alkaline Phosphatase 103 Units/L (34-104); Aspartate Amino Transferase 35 Units/L (13-39); BUN/Creatinine Ratio 20 (6-26); Bilirubin,Direct 0.1 mg/dL (0.0-0.2); Bilirubin,Indirect 0.5 mg/dL (0.0-1.0); Bilirubin,Total 0.6 mg/dL (0.3-1.0); Blood Urea Nitrogen 20 mg/dL (6-20); Calcium 9.7 mg/dL (8.6-10.3); Carbon Dioxide 23 mEq/L (23-29); Chloride 105 mEq/L (98-107); Chol/HDL Ratio 2.9 (0-4.9); Cholesterol 129 mg/dL (< 200); Ethanol < 10 mg/dL (Less than 10); Globulin 3.1 g/dL (2.4-3.5); HDL Cholesterol 45 mg/dL (40-59); LDL Cholesterol,Calculated 51 mg/dL (< 100); Salicylate < 2.5 mg/dL (15.0-30.0); Sodium 139 mEq/L (136-145); Thyroid Stimulating Hormone 2.183 mcIU/mL (0.340-5.600); Total Protein 7.4 g/dL (6.4-8.9); Triglycerides 167 mg/dL (< 150); eGFR For African Americans > 60 (> 60); eGFR For Non-African Americans > 60 (> 60)
[2021-07-15 20:17] LABS: Estimated Average Glucose 177 mg/dl; Hemoglobin A1C 7.8 %
[2021-07-15 20:30] LABS: Glucose 103 mg/dL (70-105); Osmolality,Calculated 291 (280-300)
[2021-07-15 21:59] LABS: Influenza A PCR Negative (Negative); Influenza B PCR Negative (Negative); Resp. Syncytial Virus PCR Negative (Negative)
[2021-07-15 22:03] LABS: SARS-CoV-2 by PCR (In House) Negative (Negative)
[2021-07-16] MEDS ORDERED: *HR* LORazepam 1 MG TABLET PO PRN (03:04)
[2021-07-16] MEDS ORDERED: haloperidoL 5 MG TABLET PO PRN (03:04)
[2021-07-16] MEDS ORDERED: Acetaminophen 325 MG TABLET PO PRN (03:04)
[2021-07-16] MEDS ORDERED: traZODone 50 MG TABLET PO PRN (03:04)
[2021-07-16] MEDS ORDERED: hydrOXYzine pamoate 25 MG CAPSULE PO PRN (03:04)
[2021-07-16] MEDS ORDERED: *HR* LORazepam 2 MG/ML VIAL IM PRN (03:04)
[2021-07-16] MEDS ORDERED: Haloperidol Lactate 5 MG/ML VIAL IM PRN (03:04)
[2021-07-16] MEDS ORDERED: MOM Conc 10 ML UD.LIQ PO PRN (13:04)
[2021-07-16] MEDS ORDERED: Mag Hydrox/Al Hydrox/Simeth 30 ML UDC PO PRN (13:04)
[2021-07-16] MEDS ORDERED: D5% in Water 1,000 ML IVC PRN (14:33)
[2021-07-16] MEDS ORDERED: *HR* Dextrose 50 % in Water (Syg) 50 ML SYRINGE IVP PRN (14:33)
[2021-07-16] MEDS ORDERED: Dextrose Gel 15 GM/37.5 ML TUBE PO PRN ×2 (14:33)
[2021-07-16] MEDS: Insulin LISPRO 300 UNITS/3 ML VIAL SUBQ SCH (18:07)
[2021-07-16] MEDS: *HR* Metformin 500 MG TABLET PO SCH (18:10)
[2021-07-16] MEDS: Gabapentin 400 MG CAPSULE PO SCH (21:05)
[2021-07-17] MEDS: *HR* Metformin 500 MG TABLET PO SCH ×2 (08:14→17:03)
[2021-07-17] MEDS: Aspirin Enteric Coated 81 MG Tablet PO SCH (08:14)
[2021-07-17] MEDS: Gabapentin 400 MG CAPSULE PO SCH ×2 (08:15→20:28)
[2021-07-17] MEDS: Insulin LISPRO 300 UNITS/3 ML VIAL SUBQ SCH ×4 (08:32→19:48)
[2021-07-17] MEDS: Calamine/Zinc oxide Lotion 120 ML BOTTLE TP PRN ×2 (11:23→18:58)
[2021-07-18] MEDS: Calamine/Zinc oxide Lotion 120 ML BOTTLE TP PRN (07:01)
[2021-07-18] MEDS: Gabapentin 400 MG CAPSULE PO SCH ×2 (08:24→20:40)
[2021-07-18] MEDS: Aspirin Enteric Coated 81 MG Tablet PO SCH (08:24)
[2021-07-18] MEDS: *HR* Metformin 500 MG TABLET PO SCH ×2 (08:24→16:45)
[2021-07-18] MEDS: Insulin LISPRO 300 UNITS/3 ML VIAL SUBQ SCH ×4 (08:58→20:42)
[2021-07-18] MEDS ORDERED: Patient Taking Own Medication 1 EACH IM ONE (18:00)
[2021-07-18] MEDS ORDERED: OZEMPIC SQ SCH (18:00)
[2021-07-19] MEDS: Insulin LISPRO 300 UNITS/3 ML VIAL SUBQ SCH ×4 (08:44→20:13)
[2021-07-19] MEDS: Aspirin Enteric Coated 81 MG Tablet PO SCH (08:45)
[2021-07-19] MEDS: Gabapentin 400 MG CAPSULE PO SCH ×2 (08:45→20:15)
[2021-07-19] MEDS: *HR* Metformin 500 MG TABLET PO SCH ×2 (08:45→16:55)
[2021-07-20] MEDS: Gabapentin 400 MG CAPSULE PO SCH (10:00)
[2021-07-20] MEDS: Aspirin Enteric Coated 81 MG Tablet PO SCH (10:00)
[2021-07-20] MEDS: *HR* Metformin 500 MG TABLET PO SCH (10:01)
[2021-07-20] MEDS: Insulin LISPRO 300 UNITS/3 ML VIAL SUBQ SCH ×2 (10:07→12:00)
[2021-07-20 10:17] VITALS: BP 98/68; PULSE 96; TEMP 97.1; O2SAT 94
== END 2021-07-20 17:05 | disposition home or self-care (01) | DRG 881 ==
LOC: EMEROOARM 18:32 → 1ANU 07-16 02:39
PROVIDERS: ADMIT Psychiatry & Neurology Psychiatry; ATTEND Psychiatry & Neurology Psychiatry